=== PATIENT | female | born 1960 | race Caucasian/White ===

== ENCOUNTER 2018-05-09 13:34 | Inpatient (IN) | payer MEDICAID, OTHER ==
[~2018-05-09] VITALS: Ht 154.9 cm; Wt 59.1 kg
[2018-05-09 13:58] LABS: GLUCOSE,POINT OF CARE 579 MG/DL (70-110)
[2018-05-09] MEDS ORDERED: GABA-531 PO (13:59)
[2018-05-09] MEDS ORDERED: INSNOV SQ (13:59)
[2018-05-09] MEDS ORDERED: LISI-661 PO (13:59)
[2018-05-09] MEDS ORDERED: ASPI81 PO (13:59)
[2018-05-09] MEDS ORDERED: OMEG-135 PO (13:59)
[2018-05-09] MEDS ORDERED: METF500T6 PO (14:00)
[2018-05-09] MEDS ORDERED: SIMV-260 PO (14:00)
[2018-05-09] MEDS ORDERED: INSLAN SQ (14:00)
[2018-05-09] MEDS ORDERED: ACYC200C PO (14:00)
[2018-05-09] MEDS ORDERED: SODIUM CHLORIDE 0.9% 1,000 ML IV ONE (15:30)
[2018-05-09] MEDS ORDERED: INSULIN REGULAR, HUMAN 100 UNITS/ML IVP ONE ×2 (15:30→18:15)
[2018-05-09 15:31] LABS: BASOPHILS % (AUTO) 0.8 % (0.0-2.0); EOSINOPHILS % (AUTO) 6.2 % (1.0-6.0); HEMATOCRIT 39.9 % (36-46); LYMPHOCYTES # (AUTO) 1.9 K/uL (1.0-4.8); LYMPHOCYTES % (AUTO) 40.7 % (22.0-44.0); MEAN CORPUSCULAR HEMOGLOBIN 31.5 pg (26.0-34.0); MEAN CORPUSCULAR VOLUME 90 fL (80-100); MONOCYTES # (AUTO) 0.6 K/uL (0.1-1.0); MONOCYTES % (AUTO) 12.9 % (2.0-9.0); NEUTROPHILS # (AUTO) 1.8 K/uL (1.8-7.7); NEUTROPHILS % (AUTO) 39.4 % (40.0-70.0); PLATELET COUNT (AUTO) 245 K/uL (150-450); RED BLOOD CELL COUNT(AUTO) 4.43 MIL/uL (4.00-5.20); RED CELL DISTRIBUTION WIDTH 12.5 % (11.5-14.5)
[2018-05-09 15:45] LABS: ALANINE AMINOTRANSFERASE 29 U/L (12-78); ALKALINE PHOSPHATASE 173 U/L (46-116); ANION GAP 9 mmol/L (8-16); ASPARTATE AMINOTRANSFERASE 15 U/L (15-37); BILIRUBIN,TOTAL 0.3 mg/dL (0.1-1.0); CALCIUM, TOTAL 8.6 mg/dL (8.8-10.5); CARBON DIOXIDE 27 mmol/L (22-29); CHLORIDE 99 mmol/L (98-107); CREATININE 0.86 mg/dL (0.60-1.30); GLOMERULAR FILTR. RATE CALC > 60 mL/min (>60); POTASSIUM 3.7 mmol/L (3.5-5.1); SODIUM SERUM 135 mmol/L (136-145); TOTAL PROTEIN, SERUM 6.8 g/dL (6.4-8.2); UREA NITROGEN, BLOOD 10 mg/dL (7-18)
[2018-05-09 15:47] LABS: GLUCOSE,RANDOM 444 mg/dL (70-110)
[2018-05-09 16:24] LABS: APPEARANCE,URINE CLEAR (CLEAR); BILIRUBIN,URINE NEGATIVE (NEGATIVE); GLUCOSE, URINE (UA) >=1000 mg/dL (NEGATIVE); KETONES,URINE NEGATIVE (NEGATIVE); LEUKOCYTE ESTERASE ,URINE NEGATIVE (NEGATIVE); NITRATE,URINE NEGATIVE (NEGATIVE); OCCULT BLOOD,URINE NEGATIVE (NEGATIVE); PROTEIN,URINE NEGATIVE (NEGATIVE); UROBILINOGEN,URINE 0.2 mg/dL (<=1.0)
[2018-05-09 16:29] LABS: RBC,URINE 0-2 /HPF (0-2)
[2018-05-09] MEDS ORDERED: HydrOXYzine PAMOATE 50 MG CAPSULE PO PRN (16:30)
[2018-05-09] MEDS ORDERED: LOPERAMIDE HCL 2 MG CAPSULE PO PRN (16:30)
[2018-05-09] MEDS ORDERED: PROMETHAZINE HCL 25 MG TABLET PO PRN (16:30)
[2018-05-09] MEDS ORDERED: QUEtiapine FUMARATE 100 MG TABLET PO PRN (16:30)
[2018-05-09] MEDS ORDERED: MAGNESIUM HYDROXIDE SUSPENSION 30 ML UDCUP PO PRN (16:30)
[2018-05-09] MEDS ORDERED: MAG HYDROX/AL HYDROX/SIMETH ES 30 ML SUSPENSION UDCUP PO PRN (16:30)
[2018-05-09] MEDS ORDERED: ACETAMINOPHEN 325 MG TABLET PO PRN ×2 (16:30→21:45)
[2018-05-09] MEDS ORDERED: TUBERCULIN, PURIFIED PROTEIN DERIVATIVE 5 TU/0.1 ML SYG ID ONE (16:30)
[2018-05-09 16:31] LABS: BACTERIA,URINE None Seen /HPF (None Seen); SQUAMOUS EPITHELIAL CELL,UR Few /LPF (None Seen)
[2018-05-09 16:38] LABS: AMPHET/METH SCREEN,URINE NEGATIVE (NEGATIVE); BARBITURATE SCREEN, URINE NEGATIVE (NEGATIVE); BENZODIAZEPINES SCREEN,URINE NEGATIVE (NEGATIVE); CANNABINOID SCREEN,URINE NEGATIVE (NEGATIVE); COCAINE SCREEN,URINE NEGATIVE (NEGATIVE); METHADONE SCREEN, URINE NEGATIVE (NEGATIVE); OPIATE SCREEN,URINE NEGATIVE (NEGATIVE); PHENCYCLIDINE SCREEN,URINE NEGATIVE (NEGATIVE)
[2018-05-09 17:03] LABS: GLUCOSE,POINT OF CARE 286 MG/DL (70-110)
[2018-05-09] MEDS ORDERED: MetFORMIN HCL 500 MG TABLET PO ONE (17:45)
[2018-05-09 19:24] LABS: GLUCOSE,POINT OF CARE 212 MG/DL (70-110)
[2018-05-09 20:59] LABS: GLUCOMETER DEV NAME(LOC) BV2S 2; GLUCOSE,POINT OF CARE 181 MG/DL (70-110)
[2018-05-09] MEDS: THIAMINE HCL 100 MG TABLET PO SCH (21:09)
[2018-05-09] MEDS: GABAPENTIN 300 MG CAPSULE PO SCH (21:09)
[2018-05-09 21:15] VITALS: BP 147/77
[2018-05-09] MEDS ORDERED: GuaiFENesin/D-METHORPHAN [SUGAR-FREE] 200-20MG/10 ML SYRUP UDCUP PO PRN (21:45)
[2018-05-09] MEDS ORDERED: IBUPROFEN 600 MG TABLET PO PRN (21:45)
[2018-05-09] MEDS ORDERED: GLUCAGON,HUMAN RECOMBINANT 1 MG VIAL IM PRN (21:45)
[2018-05-09] MEDS: GuaiFENesin/D-METHORPHAN [SUGAR-FREE] 200-20MG/10 ML SYRUP UDCUP PO PRN (21:54)
[2018-05-09] MEDS ORDERED: PNEUMOCOCCAL VACCINE POLYVALENT 0.5 ML VIAL [PPSV23] IM ONE (22:45)
[2018-05-10 05:30] VITALS: BP 138/76
[2018-05-10 06:39] LABS: GLUCOMETER DEV NAME(LOC) BV2S 2; GLUCOSE,POINT OF CARE 222 MG/DL (70-110)
[2018-05-10] MEDS: MetFORMIN HCL 500 MG TABLET PO SCH ×2 (07:10→16:19)
[2018-05-10] MEDS: INSULIN LISPRO 100 UNITS/ML SQ PRN ×2 (07:18→16:53)
[2018-05-10 08:30] LABS: BASOPHILS % (AUTO) 1.3 % (0.0-2.0); HEMOGLOBIN 13.5 g/dL (12.0-16.0); LYMPHOCYTES % (AUTO) 47.5 % (22.0-44.0); MEAN CORPUSCULAR HEMOGLOBIN 31.1 pg (26.0-34.0); MEAN CORPUSCULAR HGB CONC 34.6 G/dL (31.0-37.0); MEAN CORPUSCULAR VOLUME 90 fL (80-100); MONOCYTES # (AUTO) 0.6 K/uL (0.1-1.0); MONOCYTES % (AUTO) 13.7 % (2.0-9.0); NEUTROPHILS # (AUTO) 1.2 K/uL (1.8-7.7); NEUTROPHILS % (AUTO) 28.5 % (40.0-70.0); PLATELET COUNT (AUTO) 243 K/uL (150-450); RED BLOOD CELL COUNT(AUTO) 4.34 MIL/uL (4.00-5.20)
[2018-05-10 08:52] VITALS: BP 152/86
[2018-05-10] MEDS: MULTIVITAMINS WITH MINERALS, THERAPEUTIC TABLET PO SCH (08:53)
[2018-05-10] MEDS: THIAMINE HCL 100 MG TABLET PO SCH ×2 (08:53→16:19)
[2018-05-10] MEDS: GABAPENTIN 300 MG CAPSULE PO SCH ×3 (08:53→16:19)
[2018-05-10] MEDS: FOLIC ACID 1 MG TABLET PO SCH (08:53)
[2018-05-10 08:59] LABS: ALANINE AMINOTRANSFERASE 22 U/L (12-78); ALBUMIN 2.7 g/dL (3.4-5.0); ALKALINE PHOSPHATASE 111 U/L (46-116); ANION GAP 7 mmol/L (8-16); ASPARTATE AMINOTRANSFERASE 14 U/L (15-37); BILIRUBIN,TOTAL 0.3 mg/dL (0.1-1.0); CALCIUM, TOTAL 8.4 mg/dL (8.8-10.5); CARBON DIOXIDE 28 mmol/L (22-29); CHLORIDE 104 mmol/L (98-107); CHOLESTEROL 128 mg/dL (131-200); CREATININE 0.59 mg/dL (0.60-1.30); FREE T4 (FREE THYROXINE) 0.76 ng/dL (0.76-1.46); GLOMERULAR FILTR. RATE CALC > 60 mL/min (>60); GLUCOSE,RANDOM 228 mg/dL (70-110); HDL CHOLESTEROL 32 mg/dL (40-60); LDL CHOL (CALC.) 60 mg/dL (0-130); POTASSIUM 3.2 mmol/L (3.5-5.1); SODIUM SERUM 139 mmol/L (136-145); THYROID STIMULATING HORMONE 0.07 uIU/mL (0.36-3.74); TOTAL PROTEIN, SERUM 6.3 g/dL (6.4-8.2); TRIGLYCERIDES 180 mg/dL (15-150); UREA NITROGEN, BLOOD 13 mg/dL (7-18)
[2018-05-10] MEDS ORDERED: DULoxetine HCL 20 MG CAPSULE PO SCH (09:00)
[2018-05-10] MEDS ORDERED: BENZOCAINE/MENTHOL LOZENGE PO PRN (10:45)
[2018-05-10] MEDS ORDERED: POTASSIUM CHLORIDE 20 MEQ ER TABLET PO ONE (10:45)
[2018-05-10] MEDS: CARVEDILOL 12.5 MG TABLET PO SCH (16:19)
[2018-05-10 16:25] VITALS: BP 140/80
[2018-05-10 16:49] LABS: GLUCOMETER DEV NAME(LOC) BV2S 2; GLUCOSE,POINT OF CARE 318 MG/DL (70-110)
[2018-05-11 01:14] VITALS: BP 134/74
[2018-05-11] MEDS: ZOLPIDEM TARTRATE 10 MG TABLET PO PRN (02:50)
[2018-05-11] MEDS: LORazepam 2 MG TABLET PO PRN ×2 (02:50→16:48)
[2018-05-11] MEDS: MetFORMIN HCL 500 MG TABLET PO SCH ×2 (06:30→16:47)
[2018-05-11] MEDS: GlyBURIDE 5 MG TABLET PO SCH ×2 (06:30→16:47)
[2018-05-11 08:15] VITALS: BP 122/67
[2018-05-11] MEDS: GABAPENTIN 300 MG CAPSULE PO SCH ×3 (09:17→16:47)
[2018-05-11] MEDS: MULTIVITAMINS WITH MINERALS, THERAPEUTIC TABLET PO SCH (09:17)
[2018-05-11] MEDS: THIAMINE HCL 100 MG TABLET PO SCH ×2 (09:17→16:47)
[2018-05-11] MEDS: CARVEDILOL 12.5 MG TABLET PO SCH ×2 (09:17→16:47)
[2018-05-11] MEDS: FOLIC ACID 1 MG TABLET PO SCH (09:17)
[2018-05-11] MEDS: DULoxetine HCL 20 MG CAPSULE PO SCH (09:17)
[2018-05-11 09:28] LABS: ALANINE AMINOTRANSFERASE 23 U/L (12-78); ALBUMIN 2.9 g/dL (3.4-5.0); ALKALINE PHOSPHATASE 126 U/L (46-116); ANION GAP 5 mmol/L (8-16); ASPARTATE AMINOTRANSFERASE 16 U/L (15-37); BILIRUBIN,TOTAL 0.3 mg/dL (0.1-1.0); CALCIUM, TOTAL 8.6 mg/dL (8.8-10.5); CARBON DIOXIDE 28 mmol/L (22-29); CHLORIDE 101 mmol/L (98-107); CREATININE 0.61 mg/dL (0.60-1.30); GLOMERULAR FILTR. RATE CALC > 60 mL/min (>60); GLUCOSE,RANDOM 273 mg/dL (70-110); POTASSIUM 3.8 mmol/L (3.5-5.1); SODIUM SERUM 134 mmol/L (136-145); TOTAL PROTEIN, SERUM 6.8 g/dL (6.4-8.2); UREA NITROGEN, BLOOD 14 mg/dL (7-18)
[2018-05-11 16:00] VITALS: BP 145/75
[2018-05-11] MEDS: INSULIN LISPRO 100 UNITS/ML SQ PRN ×2 (16:56→21:22)
[2018-05-11 17:13] LABS: GLUCOMETER DEV NAME(LOC) BV2S 2; GLUCOSE,POINT OF CARE 237 MG/DL (70-110)
[2018-05-11] MEDS: INSULIN GLARGINE,HUM.REC.ANLOG 100 UNITS/ML SQ SCH (21:22)
[2018-05-11 21:28] LABS: GLUCOMETER DEV NAME(LOC) BV2S 2; GLUCOSE,POINT OF CARE 282 MG/DL (70-110)
[2018-05-12 04:46] VITALS: BP 120/68
[2018-05-12] MEDS: INSULIN LISPRO 100 UNITS/ML SQ PRN ×3 (06:53→21:17)
[2018-05-12] MEDS: GlyBURIDE 5 MG TABLET PO SCH ×2 (06:53→16:18)
[2018-05-12] MEDS: MetFORMIN HCL 500 MG TABLET PO SCH ×2 (06:53→16:18)
[2018-05-12 07:13] LABS: GLUCOMETER DEV NAME(LOC) BV2S 2; GLUCOSE,POINT OF CARE 221 MG/DL (70-110)
[2018-05-12 08:00] VITALS: BP 126/71
[2018-05-12] MEDS: FOLIC ACID 1 MG TABLET PO SCH (08:55)
[2018-05-12] MEDS: THIAMINE HCL 100 MG TABLET PO SCH ×2 (08:55→16:18)
[2018-05-12] MEDS: GABAPENTIN 400 MG CAPSULE PO SCH ×3 (08:55→16:18)
[2018-05-12] MEDS: DULoxetine HCL 20 MG CAPSULE PO SCH (08:55)
[2018-05-12] MEDS: MULTIVITAMINS WITH MINERALS, THERAPEUTIC TABLET PO SCH (08:55)
[2018-05-12] MEDS: CARVEDILOL 12.5 MG TABLET PO SCH ×2 (08:55→16:18)
[2018-05-12 16:12] VITALS: BP 131/71
[2018-05-12 16:38] LABS: GLUCOMETER DEV NAME(LOC) BV2S 2; GLUCOSE,POINT OF CARE 235 MG/DL (70-110)
[2018-05-12] MEDS: GuaiFENesin/D-METHORPHAN [SUGAR-FREE] 200-20MG/10 ML SYRUP UDCUP PO PRN (16:41)
[2018-05-12] MEDS: INSULIN GLARGINE,HUM.REC.ANLOG 100 UNITS/ML SQ SCH (21:17)
[2018-05-12 21:29] LABS: GLUCOMETER DEV NAME(LOC) BV2S 2; GLUCOSE,POINT OF CARE 244 MG/DL (70-110)
[2018-05-13 00:30] VITALS: BP 126/75
[2018-05-13] MEDS: ZOLPIDEM TARTRATE 10 MG TABLET PO PRN (00:50)
[2018-05-13] MEDS: GlyBURIDE 5 MG TABLET PO SCH (07:00)
[2018-05-13] MEDS: MetFORMIN HCL 500 MG TABLET PO SCH (07:00)
[2018-05-13 07:23] LABS: GLUCOMETER DEV NAME(LOC) BV2S 2; GLUCOSE,POINT OF CARE 91 MG/DL (70-110)
[2018-05-13 08:37] VITALS: BP 125/74
[2018-05-13] MEDS: THIAMINE HCL 100 MG TABLET PO SCH (09:00)
[2018-05-13] MEDS: CARVEDILOL 12.5 MG TABLET PO SCH (09:00)
[2018-05-13] MEDS: MULTIVITAMINS WITH MINERALS, THERAPEUTIC TABLET PO SCH (09:00)
[2018-05-13] MEDS: DULoxetine HCL 20 MG CAPSULE PO SCH (09:00)
[2018-05-13] MEDS: GABAPENTIN 400 MG CAPSULE PO SCH (09:00)
[2018-05-13] MEDS: FOLIC ACID 1 MG TABLET PO SCH (09:00)
[2018-05-13] MEDS ORDERED: CARV12 PO (09:50)
[2018-05-13] MEDS ORDERED: GABA-533 PO (09:50)
[2018-05-13] MEDS ORDERED: GLYB5 PO (09:50)
[2018-05-13] MEDS ORDERED: DULO20CA30 PO (09:50)
== END 2018-05-13 11:10 | disposition home or self-care (01) | DRG 751 ==
LOC: EMS 13:36 → B2S 19:13
PROVIDERS: ADMIT Psychiatry & Neurology Psychiatry; ATTEND Psychiatry & Neurology Psychiatry
DX: F33.9 Major depressive disorder, recurrent, unspecified (principal); F10.231 Alcohol dependence with withdrawal delirium; R45.851 Suicidal ideations; E11.65 Type 2 diabetes mellitus with hyperglycemia; Z91.19 Patient's noncompliance with other medical treatment and regimen; E78.00 Pure hypercholesterolemia, unspecified; Y90.9 Presence of alcohol in blood, level not specified; G89.29 Other chronic pain; I10 Essential (primary) hypertension; J06.9 Acute upper respiratory infection, unspecified; J40 Bronchitis, not specified as acute or chronic; Z59.9 Problem related to housing and economic circumstances, unspecified; Z63.8 Other specified problems related to primary support group; Z65.3 Problems related to other legal circumstances; Z79.4 Long term (current) use of insulin; Z79.82 Long term (current) use of aspirin; Z79.899 Other long term (current) drug therapy
CPT/HCPCS: 83036; 84439; 84443; 86592; 87086; 93005; 96374; 99285; J1815; J7030